=== PATIENT | male | born 1995 | race Hispanic/Latino ===

== ENCOUNTER → 2023-07-14 | Emergency (ER) | payer SELFPAY ==
[~2023-07-14] MED LIST: MECLIZINE HCL 12.5 MG TAB ONE; METOCLOPRAMIDE 10 MG/2mL INJ ONE; NA CHLORIDE 0.9% 1,000 ML ONE
[2023-07-14 02:00] LABS: Absolute Eosinophils 0.1 K/uL (0-0.5); Absolute Lymphocytes (CBC) 3.3 K/uL (0.7-4.9); Absolute Monocytes 0.7 K/uL (0.1-1.3); Absolute Neutrophil 3.3 K/uL (1.8-8.0); Basophils % 0.4 % (0-1.3); Eosinophils % 1.3 % (0-4.4); Hematocrit 44.8 % (39.6-49.0); Hemoglobin 15.1 g/dL (13.6-17.9); MCH 29.3 pg (27.0-35.0); MCHC 33.8 g/dL (32.0-36.0); MCV 86.8 fL (80-100); MPV 7.7 fL (7.6-11.3); Monocytes % 8.9 % (3.3-12.3); Neutrophils % 44.4 % (41.7-73.7); Nucleated RBC Absolute Count 0.1 (0-0); Nucleated Red Blood Cells % 0.8 % (0-0); Platelets 308 thou/uL (152-406); RBC Red Blood Cell Count 5.16 M/uL (4.33-5.43); Red Cell Distribution Width 14.1 % (12.1-15.2)
[2023-07-14 02:17] LABS: Albumin 3.3 g/dL (3.4-5.0); Albumin/Globulin Ratio 0.8 (1.1-1.8); Anion Gap 10.4 mEq/L (5.0-15.0); Bilirubin Total 0.4 mg/dL (0.2-1.0); Protein, Total 7.3 g/dL (6.4-8.2)
--- NOTE | 2023-07-14 04:18 | ER ---
Nurse's Notes [facility] Name: Fahad Schafer Age: 27 yrs Sex: Male : 1995 Arrival Date: 07/14/2023 Time: 00:56 Bed 5 Private MD: Diagnosis: Benign paroxysmal vertigo, unspecified ear Presentation: 07/13 01:19 Chief complaint: Patient states: Around 2pm I was dizzy while laying down. I went to jb4 sleep and woke up at 5pm and the Dizziness was like the room was spinning, my vision got blurry, and I vomited once. Symptoms have resolved. Coronavirus screen: At this time, the client does not indicate any symptoms associated with coronavirus-19. Ebola Screen: No symptoms or risks identified at this time. Initial Sepsis Screen: Does the patient meet any 2 criteria? No. Patient's initial sepsis screen is negative. Does the patient have a suspected source of infection? No. Patient's initial sepsis screen is negative. Risk Assessment: Do you want to hurt yourself or someone else? Patient reports no desire to harm self or others. Onset of symptoms was July 14, 2023. Transition of care: patient was not received from another setting of care. 01:19 Method Of Arrival: Ambulatory jb4 01:19 Acuity: SIXTO 3 jb4 Triage Assessment: 01:21 General: Appears in no apparent distress. comfortable, Behavior is calm, cooperative, jb4 appropriate for age. Pain: Denies pain. EENT: No signs and/or symptoms were reported regarding the EENT system. Neuro: Level of Consciousness is awake, alert, obeys commands, Oriented to person, place, time, situation. Cardiovascular: Patient's skin is warm and dry. Respiratory: Airway is patent Respiratory effort is even, unlabored, Respiratory pattern is regular, symmetrical. GI: Patient currently denies nausea. : No signs and/or symptoms were reported regarding the genitourinary system. Derm: No signs and/or symptoms reported regarding the dermatologic system. Musculoskeletal: Circulation, motion, and sensation intact. Range of motion: intact in all extremities. Historical: - Allergies: 01:21 No Known Allergies; jb4 - PMHx: 01:21 None; jb4 - PSHx: :21 None; jb4 - Immunization history:: Adult Immunizations up to date. - Social history:: Smoking status: Patient denies any tobacco usage or history of. Screenin:22 [facility] ED Fall Risk Assessment (Adult) History of falling in the last 3 months, jb4 including since admission No falls in past 3 months (0 pts) Confusion or Disorientation No (0 pts) Intoxicated or Sedated No (0 pts) Impaired Gait No (0 pts) Mobility Assist Device Used No (0 pt) Altered Elimination No (0 pt) Score/Fall Risk Level 0 - 2 = Low Risk Oriented to surroundings, Maintained a safe environment. Abuse screen: Denies threats or abuse. Nutritional screening: No deficits noted. Tuberculosis screening: No symptoms or risk factors identified. Assessment: 01:19 General: see triage assessment. jb4 02:15 Reassessment: Patient appears in no apparent distress at this time. Patient and/or jb4 family updated on plan of care and expected duration. Pain level reassessed. Patient is alert, oriented x 3, equal unlabored respirations, skin warm/dry/pink. 03:24 Reassessment: Patient appears in no apparent distress at this time. Patient and/or jb4 family updated on plan of care and expected duration. Pain level reassessed. Patient is alert, oriented x 3, equal unlabored respirations, skin warm/dry/pink. 04:40 Reassessment: Patient appears in no apparent distress at this time. Patient and/or jb4 family updated on plan of care and expected duration. Pain level reassessed. Patient is alert, oriented x 3, equal unlabored respirations, skin warm/dry/pink. Vital Signs: 01:19 BP 141 / 98; Pulse 71; Resp 16; Temp 97.4(TE); Pulse Ox 99% on R/A; Weight 100.5 kg jb4 (R); Height 5 ft. 9 in. ; 02:15 BP 118 / 72; Pulse 64; Resp 16; Pulse Ox 97% on R/A; jb4 03:00 BP 112 / 77; Pulse 71; Resp 16; Pulse Ox 98% on R/A; jb4 01:19 Body Mass Index 32.72 (100.50 kg, 175.26 cm) jb4 ED Course: 01:03 Patient arrived in ED. gm2 01:12 Elieser Gutierrez MD is Attending Physician. sp4 01:21 Triage completed. jb4 01:21 Arm band placed on right wrist. jb4 01:22 Patient has correct armband on for positive identification. Bed in low position. Call jb4 light in reach. Side rails up X 1. 01:48 CMP Sent. jb4 01:48 CBC with Diff Sent. jb4 01:48 Lipase Sent. jb4 02:12 CT Head Brain wo Cont In Process Unspecified. EDMS 03:04 Jose Eduardo Antony RN is Primary Nurse. jb4 04:40 Provided Education on: discharge instructions.. jb4 04:40 No provider procedures requiring assistance completed. IV discontinued, intact, jb4 bleeding controlled, No redness/swelling at site. Pressure dressing applied. Administered Medications: 01:28 CANCELLED (Physician Discretion): ondansetron 4 mg IVP once; over 2 minutes sp4 01:48 Drug: NS 0.9% IV 1000 ml IV at 1 bolus Per protocol; 1000 mL bolus Route: IV; Rate: 1 jb4 bolus; Site: right antecubital; 03:00 Follow up: Response: No adverse reaction; Marked relief of symptoms; IV Status: jb4 Completed infusion; IV Intake: 1000ml 01:48 Drug: metoCLOPramide IVP 10 mg IVP once; over 1 to 2 minutes Route: IVP; Site: right jb4 antecubital; 02:15 Follow up: Response: No adverse reaction; Marked relief of symptoms jb4 01:48 Drug: Meclizine PO 50 mg PO once Route: PO; jb4 02:15 Follow up: Response: No adverse reaction; Marked relief of symptoms jb4 Medication: 01:22 VIS not applicable for this client. jb4 Intake: 03:00 IV: 1000ml; Total: 1000ml. jb4 Outcome: 04:17 Discharge ordered by . sp4 04:40 Discharged to home ambulatory, with family, jb4 04:40 Condition: stable 04:40 Discharge instructions given to patient, Instructed on discharge instructions, follow up and referral plans. medication usage, Demonstrated understanding of instructions, follow-up care, medications, Prescriptions given X 2, 04:40 Patient left the ED. jb4 Signatures: Dispatcher [employer] EDOK Jose Eduardo Antony RN RN jb4 Elieser Gutierrez MD MD sp4 Marcy Wilson gm2 Corrections: (The following items were deleted from the chart) 03:25 01:19 BP 141 / 98; Pulse 71bpm; Resp 16bpm; Pulse Ox 99% RA; 100.5 kg Reported; Height jb4 5 ft. 9 in.; BMI: 32.7; jb4
--- NOTE | 2023-07-14 04:18 | EDPHYS ---
Physician Documentation [facility] Name: Fahad Schafer Age: 27 yrs Sex: Male : 1995 Arrival Date: 07/14/2023 Time: 00:56 Bed 5 Private MD: ED Physician Elieser Gutierrez HPI: 07/13 01:12 This 27 yrs old Male presents to ER via Unassigned with complaints of sp4 Nausea/Vomiting, Dizziness, Blurred Vision. Historical: - Allergies: 01:21 No Known Allergies; jb4 - PMHx: 01:21 None; jb4 - PSHx: 01:21 None; jb4 - Immunization history:: Adult Immunizations up to date. - Social history:: Smoking status: Patient denies any tobacco usage or history of. Vital Signs: 01:19 BP 141 / 98; Pulse 71; Resp 16; Temp 97.4(TE); Pulse Ox 99% on R/A; Weight 100.5 kg jb4 (R); Height 5 ft. 9 in. ; 02:15 BP 118 / 72; Pulse 64; Resp 16; Pulse Ox 97% on R/A; jb4 03:00 BP 112 / 77; Pulse 71; Resp 16; Pulse Ox 98% on R/A; jb4 01:19 Body Mass Index 32.72 (100.50 kg, 175.26 cm) jb4 MDM: 01:13 Patient medically screened. sp4 04:09 ED course: EXAM: CT Head Without Intravenous Contrast CLINICAL HISTORY: The patient is sp4 27 years old and is Male; DIZZINESS TECHNIQUE: Axial computed tomography images of the head/brain without intravenous contrast. Sagittal and coronal reformatted images were created and reviewed. This CT exam was performed using one or more of the following dose reduction techniques: automated exposure control, adjustment of the mA and/or kV according to patient size, and/or use of iterative reconstruction technique. COMPARISON: No relevant prior studies available. FINDINGS: Brain: Unremarkable. No hemorrhage. No significant white matter disease. No edema. Ventricles: Unremarkable. No ventriculomegaly. Bones/joints: Unremarkable. No acute fracture. Soft tissues: Unremarkable. Sinuses: Maxillary sinus mucosal thickening. Mastoid air cells: Unremarkable as visualized. No mastoid effusion. IMPRESSION: No acute intracranial abnormality. Electronically signed by: Jaciel Maguire MD 07/14/2023 02:44 AM. 07/13 01:12 Order name: CBC with Diff; Complete Time: 04:11 sp4 07/13 01:12 Order name: CMP; Complete Time: 04:11 sp4 07/13 01:12 Order name: Lipase; Complete Time: 04:11 sp4 07/13 01:28 Order name: CT Head Brain wo Cont sp4 07/13 01:12 Order name: IV Saline Lock; Complete Time: 01:48 sp4 07/13 01:12 Order name: Labs collected and sent; Complete Time: 01:48 sp4 Administered Medications: 01:28 CANCELLED (Physician Discretion): ondansetron 4 mg IVP once; over 2 minutes sp4 01:48 Drug: NS 0.9% IV 1000 ml IV at 1 bolus Per protocol; 1000 mL bolus Route: IV; Rate: 1 jb4 bolus; Site: right antecubital; 03:00 Follow up: Response: No adverse reaction; Marked relief of symptoms; IV Status: jb4 Completed infusion; IV Intake: 1000ml 01:48 Drug: metoCLOPramide IVP 10 mg IVP once; over 1 to 2 minutes Route: IVP; Site: right jb4 antecubital; 02:15 Follow up: Response: No adverse reaction; Marked relief of symptoms jb4 01:48 Drug: Meclizine PO 50 mg PO once Route: PO; jb4 02:15 Follow up: Response: No adverse reaction; Marked relief of symptoms jb4 Disposition Summary: 07/14/23 04:17 Discharge Ordered Notes: Location: Home sp4 Problem: new sp4 Symptoms: have improved sp4 Condition: Stable sp4 Diagnosis - Benign paroxysmal vertigo, unspecified ear sp4 Followup: sp4 - With: Private Physician - When: 7 - 10 days - Reason: Recheck today's complaints Discharge Instructions: - Discharge Summary Sheet sp4 - Benign Positional Vertigo sp4 Forms: - Patient Portal Instructions sp4 Prescriptions: - Meclizine 25 mg Oral tablet - take 1 tablet ORAL route every 8 hours As needed PRN vertigo; 30 tablet; sp4 Refills: 0, Product Selection Permitted - ondansetron 8 mg Oral Tablet,disintegrating - take 1 tablet ORAL route every 8 hours PRN nausea; 30 tablet; Refills: 0, sp4 Product Selection Permitted Signatures: Dispatcher [employer] Jose Eduardo Stokes RN RN jb4 Elieser Gutierrez MD MD sp4 Corrections: (The following items were deleted from the chart) 01:28 01:13 Ondansetron IVP 4 mg IVP once; over 2 minutes ordered. sp4 sp4
[2023-07-14 04:52] VITALS: BP 112/77; TEMP 97.4; O2SAT 98
--- NOTE | 2023-07-14 10:58 | RAD REPORT ---
EXAM DESCRIPTION: CT - Head Brain Wo Cont - 07/14/2023 6:34 am CLINICAL HISTORY: The patient is 27 years old and is Male; DIZZINESS TECHNIQUE: Axial computed tomography images of the head/brain without intravenous contrast. Sagitt al and coronal reformatted images were created and reviewed. This CT exam was performed using one o r more of the following dose reduction techniques: automated exposure control, adjustment of the mA and/or kV according to patient size, and/or use of iterative reconstruction technique. COMPARISON: No relevant prior studies available. FINDINGS: Brain: Unremarkable. No hemorrhage. No significant white matter disease. No edema. Ventricles: Unremarkable. No ventriculomegaly. Bones/joints: Unremarkable. No acute fracture. Soft tissues: Unremarkable. Sinuses: Maxillary sinus mucosal thickening. Mastoid air cells: Unremarkable as visualized. No mastoid effusion. IMPRESSION: No acute intracranial abnormality. Electronically signed by: Jaciel Maguire MD 07/14/2023 02:44 AM CDT Due to temporary technical issues with the PACS/Fluency reporting system, reports are being signed by the in house radiologist without review as a courtesy to ensure prompt reporting. The interpreting r adiologist is fully responsible for the content of the report.
== END ==
LOC: ER 00:56
DX: H81.10 Benign paroxysmal vertigo, unspecified ear (principal)
CPT/HCPCS: 36415; 70450; 80053; 83690; 85025; 96361; 96374; 99284; J2765; J7030; J8597